=== PATIENT | female | born 1990 | race Caucasian/White ===

== ENCOUNTER → 2018-02-07 | Outpatient (CLI) | payer BC ==
[2018-02-07 20:19] LABS: BASO % 0.1 % (0.0-1.0); EOS # 0.1 10^3/uL (0.0-0.50); EOS % 1.2 % (0.0-3.0); HEMATOCRIT 38.8 % (36.0-47.0); HEMOGLOBIN 12.6 g/dl (12.0-15.5); IMMATURE GRANULOCYTE % 0.3 % (0-3.0); LYMPH # 3.3 10^3/uL (1.5-6.5); MEAN CORPUSCULAR HEMOGLOBIN 26.6 pg (27.0-33.0); MEAN CORPUSCULAR HGB CONC 32.5 g/dl (32.0-36.5); MEAN CORPUSCULAR VOLUME 81.9 fl (80.0-96.0); MONO # 0.9 10^3/uL (0.0-0.8); MONO % 8.6 % (0.0-5.0); NEUTROPHILS % 57.8 % (36.0-66.0); PLATELET COUNT, AUTOMATED 254 10^3/uL (150-450); RED BLOOD COUNT 4.74 10^6/uL (4.00-5.40); RED CELL DISTRIBUTION WIDTH 13.2 % (11.5-14.5); WHITE BLOOD COUNT 10.5 10^3/uL (4.0-10.0)
[2018-02-07 20:40] LABS: ALBUMIN 3.9 GM/DL (3.2-5.2); ALBUMIN/GLOBULIN RATIO 1.03 (1.00-1.93); ALKALINE PHOSPHATASE 118 U/L (45-117); ALT/SGPT 25 U/L (12-78); ANION GAP 6 MEQ/L (8-16); AST/SGOT 16 U/L (7-37); BILIRUBIN,TOTAL 0.2 MG/DL (0.2-1.0); BLOOD UREA NITROGEN 8 MG/DL (7-18); CARBON DIOXIDE LEVEL 29 MEQ/L (21-32); CHLORIDE LEVEL 104 MEQ/L (98-107); CREATININE FOR GFR 0.66 MG/DL (0.55-1.30); FREE T4 0.92 NG/DL (0.76-1.46); GLOMERULAR FILTRATION RATE > 60.0 (>60); GLUCOSE, FASTING 78 MG/DL (70-100); POTASSIUM SERUM 4.2 MEQ/L (3.5-5.1); SODIUM LEVEL 139 MEQ/L (136-145); TOTAL PROTEIN 7.7 GM/DL (6.4-8.2)
== END ==
LOC: M WUC 17:39
DX: R63.5 Abnormal weight gain (principal)
CPT/HCPCS: 84443

== ENCOUNTER → 2018-05-09 | Outpatient (REF) | payer BC | LOC: M LAB REF 12:36 | PROVIDERS: ATTEND Physician Assistant | DX: J02.9 Acute pharyngitis, unspecified (principal) ==

== ENCOUNTER → 2018-09-05 | Outpatient (REF) | payer BC ==
[2018-09-08 14:15] LABS: HPV HYBRID CAPTURE II Negative (Negative)
== END ==
LOC: M LAB REF 13:13
PROVIDERS: ATTEND Family Medicine
DX: Z12.4 Encounter for screening for malignant neoplasm of cervix (principal); Z11.51 Encounter for screening for human papillomavirus (HPV)
CPT/HCPCS: 87624; G0123

== ENCOUNTER → 2018-09-05 | Outpatient (REF) | payer BC ==
[2018-09-05 15:30] LABS: CHLAMYDIA DNA AMPLIFICATION NEGATIVE (NEGATIVE); GC DNA AMPLIFICATION NEGATIVE (NEGATIVE)
== END ==
LOC: M LAB REF 12:56
PROVIDERS: ATTEND Family Medicine
DX: Z01.419 Encounter for gynecological examination (general) (routine) without abnormal findings (principal); Z11.3 Encounter for screening for infections with a predominantly sexual mode of transmission

== ENCOUNTER → 2018-10-13 | Outpatient (CLI) | payer BC ==
--- NOTE | 2018-10-13 14:49 | REP ---
LUMBOSACRAL SPINE: Five views of the lumbosacral spine are performed. There is no compression fracture or malalignment. There is no spondylolysis or spondylolisthesis with normal lumbar lordosis. The disc spaces are well preserved. The posterior elements appear intact. There are hypoplastic 12th ribs noted. IMPRESSION: Essentially negative lumbosacral spine series. Electronically Signed by Gucci Smith MD 10/13/2018 07:41 P
== END ==
LOC: M WUC 13:49
PROVIDERS: ATTEND Physician Assistant
DX: M54.32 Sciatica, left side (principal)

== ENCOUNTER → 2019-08-31 | Outpatient (CLI) | payer BC ==
[2019-08-31 13:35] LABS: BASO % 0.3 % (0.0-1.0); EOS # 0.1 10^3/uL (0.0-0.5); EOS % 0.9 % (0.0-3.0); HEMATOCRIT 40.5 % (36.0-47.0); HEMOGLOBIN 13.4 g/dl (12.0-15.5); LYMPH # 2.6 10^3/uL (1.5-5.0); LYMPH % 33.6 % (24.0-44.0); MEAN CORPUSCULAR HEMOGLOBIN 27.5 pg (27.0-33.0); MEAN CORPUSCULAR HGB CONC 33.1 g/dl (32.0-36.5); MEAN CORPUSCULAR VOLUME 83.2 fl (80.0-96.0); MONO # 0.7 10^3/uL (0.0-0.8); MONO % 8.5 % (0.0-5.0); NEUTROPHILS # 4.3 10^3/uL (1.5-8.5); NEUTROPHILS % 56.6 % (36.0-66.0); PLATELET COUNT, AUTOMATED 259 10^3/uL (150-450); RED BLOOD COUNT 4.87 10^6/uL (4.00-5.40); WHITE BLOOD COUNT 7.7 10^3/uL (4.0-10.0)
[2019-08-31 13:49] LABS: ALBUMIN 3.6 GM/DL (3.2-5.2); ALT/SGPT 21 U/L (12-78); BILIRUBIN,TOTAL 0.3 MG/DL (0.2-1.0); BLOOD UREA NITROGEN 8 MG/DL (7-18); CALCIUM LEVEL 8.7 MG/DL (8.5-10.1); CARBON DIOXIDE LEVEL 23 MEQ/L (21-32); CHLORIDE LEVEL 110 MEQ/L (98-107); CREATININE FOR GFR 0.66 MG/DL (0.55-1.30); FREE T4 0.95 NG/DL (0.76-1.46); GLOMERULAR FILTRATION RATE > 60.0 (>60); GLUCOSE, FASTING 87 MG/DL (70-100); POTASSIUM SERUM 3.9 MEQ/L (3.5-5.1); SODIUM LEVEL 141 MEQ/L (136-145); TOTAL PROTEIN 7.7 GM/DL (6.4-8.2)
[2019-09-02 10:08] LABS: VITAMIN B12 LEVEL 300 PG/ML
[2019-09-02 10:18] LABS: FOLATE 14.3 NG/ML
== END ==
LOC: M WUC 10:36
PROVIDERS: ATTEND Nurse Practitioner Family
DX: R20.0 Anesthesia of skin (principal)

== ENCOUNTER → 2019-12-15 | Outpatient (REF) | payer BC | LOC: M LAB REF 15:03 | PROVIDERS: ATTEND Physician Assistant | DX: R10.9 Unspecified abdominal pain (principal); R31.9 Hematuria, unspecified ==

== ENCOUNTER → 2019-12-20 | Outpatient (CLI) | payer BC ==
--- NOTE | 2020-01-27 07:52 | REP ---
RENAL ULTRASOUND: Delay in reporting results from hospital computer system malfunction from malware, ransomware. REASON FOR EXAM: Right flank pain, hematuria, and proteinuria. COMPARISON: None. FINDINGS: The right kidney measures 10.4 x 5.8 x 4.6 cm. The left kidney measures 10.9 x 5.4 x 5.0 cm. The kidneys are normal size. Renal cortical echogenicity is normal bilaterally. There is no hydronephrosis or calculus on the right or the left. There are no solid cystic masses on the right or the left. IMPRESSION: Essentially negative renal ultrasound. BLADDER: The bladder is incompletely distended. We are unable to identify ureteral jets with color Doppler imaging. IMPRESSION: Suboptimal bladder imaging MTDD
== END ==
LOC: M RAD 06:22
PROVIDERS: ATTEND Physician Assistant
DX: R31.9 Hematuria, unspecified (principal)

== ENCOUNTER → 2020-02-16 | Outpatient (CLI) | payer BC ==
[2020-02-16 17:30] LABS: AMORPHOUS SEDIMENT SMALL (NEGATIVE); APPEARANCE, URINE TURBID (CLEAR); BACTERIA, URINE AUTO 2+ (NEGATIVE); BILIRUBIN, URINE AUTO NEGATIVE (NEGATIVE); BLOOD, URINE BLOOD NEGATIVE (NEGATIVE); COLOR, URINE YELLOW (YELLOW); GLUCOSE, URINE (UA) AUTO 1+ mg/dL (NEGATIVE); KETONE, URINE AUTO TRACE mg/dL (NEGATIVE); LEUKOCYTE ESTERASE, URINE AUTO 1+ (NEGATIVE); MUCUS, URINE LARGE (NEGATIVE); NITRITE, URINE AUTO NEGATIVE (NEGATIVE); PROTEIN, URINE AUTO 1+ mg/dL (NEGATIVE); RBC, URINE AUTO 12 /HPF (0-3); SPECIFIC GRAVITY URINE AUTO 1.027 (1.002-1.035); SQUAMOUS EPITHELIAL CELL UR AU 36 /HPF (0-6); UROBILINOGEN, URINE AUTO 0.2 mg/dL (0.0-2.0); WBC, URINE AUTO 23 /HPF (0-3)
[2020-02-16 17:37] LABS: BASO % 0.1 % (0.0-1.0); EOS # 0.1 10^3/uL (0.0-0.5); EOS % 1.1 % (0.0-3.0); HEMATOCRIT 43.3 % (36.0-47.0); LYMPH # 2.8 10^3/uL (1.5-5.0); LYMPH % 30.4 % (24.0-44.0); MEAN CORPUSCULAR HGB CONC 32.3 g/dl (32.0-36.5); MEAN CORPUSCULAR VOLUME 83.4 fl (80.0-96.0); MONO # 0.8 10^3/uL (0.0-0.8); MONO % 8.4 % (0.0-5.0); NEUTROPHILS # 5.5 10^3/uL (1.5-8.5); NEUTROPHILS % 59.7 % (36.0-66.0); PLATELET COUNT, AUTOMATED 301 10^3/uL (150-450); RED BLOOD COUNT 5.19 10^6/uL (4.00-5.40); WHITE BLOOD COUNT 9.2 10^3/uL (4.0-10.0)
[2020-02-16 17:49] LABS: HCG, SERUM QUALITATIVE NEGATIVE (NEGATIVE)
[2020-02-16 17:57] LABS: ALBUMIN 3.9 GM/DL (3.2-5.2); ALT/SGPT 20 U/L (12-78); BILIRUBIN,TOTAL 0.4 MG/DL (0.2-1.0); BLOOD UREA NITROGEN 9 MG/DL (7-18); CALCIUM LEVEL 8.8 MG/DL (8.5-10.1); CARBON DIOXIDE LEVEL 26 MEQ/L (21-32); CHLORIDE LEVEL 106 MEQ/L (98-107); CREATININE FOR GFR 0.78 MG/DL (0.55-1.30); FREE T4 0.87 NG/DL (0.76-1.46); GLOMERULAR FILTRATION RATE > 60.0 (>60); GLUCOSE, FASTING 88 MG/DL (70-100); LIPASE 83 U/L (73-393); POTASSIUM SERUM 3.6 MEQ/L (3.5-5.1); SODIUM LEVEL 140 MEQ/L (136-145); TOTAL PROTEIN 8.1 GM/DL (6.4-8.2)
== END ==
LOC: M WUC 10:56
PROVIDERS: ATTEND Nurse Practitioner Family
DX: R10.31 Right lower quadrant pain (principal)

== ENCOUNTER → 2020-05-02 | Outpatient (CLI) | payer SELFPAY | LOC: M LABSMTC 09:11 | PROVIDERS: ATTEND Pediatrics | DX: Z20.828 Contact with and (suspected) exposure to other viral communicable diseases (principal) ==

== ENCOUNTER → 2020-05-22 | Outpatient (CLI) | payer BC ==
[2020-05-22 19:54] LABS: FOLATE 9.9 NG/ML
[2020-06-05 11:08] LABS: Lyme Disease IgG/IgM Antibodie <0.91 ISR (0.00-0.90); Lyme Disease IgM Ab Quantitati <0.80 index (0.00-0.79); VITAMIN B1 LEVEL WHOLE BLOOD 103.3 nmol/L (66.5-200.0); VITAMIN B6,PYRIDOXAL PHOSPHATE 4.3 ug/L (2.0-32.8); VITAMIN E(ALPHA TOCOPHEROL) 10.2 mg/L (5.9-19.4); VITAMIN E(GAMMA TOCOPHEROL) 2.3 mg/L (0.7-4.9)
== END ==
LOC: M WUC 15:15
PROVIDERS: ATTEND Nurse Practitioner Family
DX: R20.2 Paresthesia of skin (principal); M12.9 Arthropathy, unspecified

== ENCOUNTER → 2020-05-29 | Outpatient (CLI) | payer SELFPAY | LOC: M LABSMTC 12:02 | PROVIDERS: ATTEND Pediatrics | DX: Z20.822 Contact with and (suspected) exposure to COVID-19 (principal) ==

== ENCOUNTER → 2020-06-29 | Outpatient (CLI) | payer BC ==
--- NOTE | 2020-06-29 08:46 | REP ---
INDICATION: RIGHT UPPER QUADRANT PAIN COMPARISON: None. TECHNIQUE: Real time josue scale ultrasound examination using curved array transducer. FINDINGS: Liver is normal in contour, size, and echogenicity without focal hepatic lesions identified. Pancreas is incompletely evaluated due to interposed bowel gas. The gallbladder is normal and without gallstones, wall thickening, or pericholecystic fluid. No biliary ductal dilatation is appreciated and the common bile duct measures 4.9 mm diameter. Right kidney is normal in reniform shape without hydronephrosis and measures 10.5 x 5.2 x 4.8 cm. Visualized abdominal aorta appears normal. No ascites in the visualized right upper quadrant. IMPRESSION: Normal limited right upper quadrant ultrasound <Electronically signed by Angel Mcneil > 06/29/20 [id number]
== END ==
LOC: M RAD 06:25
PROVIDERS: ATTEND Physician Assistant Medical
DX: R10.11 Right upper quadrant pain (principal)

== ENCOUNTER → 2020-07-03 | Outpatient (CLI) | payer BC ==
[2020-07-03 19:41] LABS: HEMATOCRIT 39.1 % (36.0-47.0); HEMOGLOBIN 12.5 g/dl (12.0-15.5); MEAN CORPUSCULAR HEMOGLOBIN 26.7 pg (27.0-33.0); MEAN CORPUSCULAR VOLUME 83.4 fl (80.0-96.0); PLATELET COUNT, AUTOMATED 272 10^3/uL (150-450); RED BLOOD COUNT 4.69 10^6/uL (4.00-5.40); WHITE BLOOD COUNT 8.2 10^3/uL (4.0-10.0)
[2020-07-03 20:51] LABS: ALBUMIN 3.9 GM/DL (3.2-5.2); ALT/SGPT 20 U/L (12-78); AMYLASE 35 U/L (25-115); BILIRUBIN,DIRECT < 0.1 MG/DL (0.0-0.2); BILIRUBIN,TOTAL 0.2 MG/DL (0.2-1.0); BLOOD UREA NITROGEN 7 MG/DL (7-18); CALCIUM LEVEL 8.6 MG/DL (8.5-10.1); CARBON DIOXIDE LEVEL 26 MEQ/L (21-32); CHLORIDE LEVEL 107 MEQ/L (98-107); CREATININE FOR GFR 0.86 MG/DL (0.55-1.30); GLOMERULAR FILTRATION RATE > 60.0 (>60); GLUCOSE, FASTING 84 MG/DL (70-100); LIPASE 96 U/L (73-393); POTASSIUM SERUM 3.2 MEQ/L (3.5-5.1); SODIUM LEVEL 140 MEQ/L (136-145); TOTAL PROTEIN 7.9 GM/DL (6.4-8.2)
[2020-07-03 20:52] LABS: LABILE ALKPHOS 53 U/L; STABLE ALKPHOS 70 U/L
[2020-07-03 20:53] LABS: % LABILE ALKALINE PHOSPHATASE 43 %
== END ==
LOC: M WUC 15:23
PROVIDERS: ATTEND Physician Assistant Medical
DX: R10.11 Right upper quadrant pain (principal)

== ENCOUNTER → 2020-08-10 | Outpatient (CLI) | payer BC ==
[~2020-08-10] MED LIST: E-Z-GAS II EFFERVESCENT PACKET (SODIUM BICARB./CITRIC ACID/SIMETHICONE) As Ordered ONE; E-Z-HD 98% w/w 340GM SUSP BTL As Ordered ONE; E-Z-PAQUE 96% w/w SUSP 176GM BTL As Ordered ONE
--- NOTE | 2020-08-10 10:21 | REP ---
INDICATION: RUQ PAIN. COMPARISON: None TECHNIQUE/RADIOTRACER AND DOSE: FOLLOWING THE INTRAVENOUS ADMINISTRATION OF 6.6 MCI TECHNETIUM 99 M-MEBROFENIN, MULTIPLE IMAGES OF THE RIGHT UPPER QUADRANT ARE PERFORMED FOR 60 MINUTES. NEXT 8 OZ OF ENSURE ENLIVE IS INGESTED AND FURTHER IMAGING IS PERFORMED FOR 65 MINUTES. FINDINGS: THE GALLBLADDER IS VISUALIZED AT 15 MINUTES POST INJECTION. THERE IS BILIARY TO BOWEL TRANSIT AT 15MINUTES POST INJECTION. THERE IS NO SCINTIGRAPHIC EVIDENCE OF CHOLECYSTITIS. GALLBLADDER EJECTION FRACTION IS CALCULATED TO BE 10% WHICH IS low. IMPRESSION: Gallbladder ejection fraction is 10%, normal is greater than 35%. <Electronically signed by Gucci Smith > 08/10/20 [id number]
== END ==
LOC: M RAD 07:42
PROVIDERS: ATTEND Physician Assistant Medical
DX: R10.11 Right upper quadrant pain (principal)
CPT/HCPCS: 78227; A9537

== ENCOUNTER 2020-11-09 15:24 | Outpatient (CLI) | payer BC ==
[~2020-11-09] VITALS: Ht 152.4 cm; Wt 86.0 kg
[2020-11-09 15:35] VITALS: BP 135/76
[2020-11-09] MEDS ORDERED: methylPREDNISolone 1,000 MG, VIAL MATE ADAPTER 1 EACH in NS 250 ML IV ONE (15:40)
[2020-11-09] MEDS ORDERED: SERT-141 PO (16:05)
[2020-11-09] MEDS ORDERED: BACT800T5 PO (16:06)
[2020-11-09 17:00] VITALS: BP 129/76
[2020-11-09 17:16] VITALS: BP 143/77
== END 2020-11-09 17:20 | disposition home or self-care (01) ==
LOC: M INFU 15:24
PROVIDERS: ATTEND Psychiatry & Neurology Neurology
DX: G35 Multiple sclerosis (principal)
CPT/HCPCS: 96365; J2930

== ENCOUNTER 2020-11-10 15:50 | Outpatient (CLI) | payer BC ==
[~2020-11-10] VITALS: Ht 152.4 cm; Wt 86.0 kg
[~2020-11-10 15:50] MED LIST changes: +BACT800T5 PO; -E-Z-GAS II EFFERVESCENT PACKET (SODIUM BICARB./CITRIC ACID/SIMETHICONE) As Ordered ONE; -E-Z-HD 98% w/w 340GM SUSP BTL As Ordered ONE; -E-Z-PAQUE 96% w/w SUSP 176GM BTL As Ordered ONE; +SERT-141 PO
[2020-11-10] MEDS ORDERED: methylPREDNISolone 1,000 MG, VIAL MATE ADAPTER 1 EACH in NS 250 ML IV ONE (16:00)
[2020-11-10 16:48] VITALS: BP 118/73
[2020-11-10 17:12] VITALS: BP 120/69
== END 2020-11-10 17:20 | disposition home or self-care (01) ==
LOC: M INFU 15:50
PROVIDERS: ATTEND Psychiatry & Neurology Neurology
DX: G35 Multiple sclerosis (principal)
CPT/HCPCS: 96365; J2930

== ENCOUNTER 2020-11-11 16:25 | Outpatient (CLI) | payer BC ==
[~2020-11-11] VITALS: Ht 152.4 cm; Wt 86.0 kg
[~2020-11-11 16:25] MED LIST changes: +methylPREDNISolone 1,000 MG, VIAL MATE ADAPTER 1 EACH in NS 250 ML IV ONE
[2020-11-11 16:30] VITALS: BP 139/72
[2020-11-11 17:51] VITALS: BP 133/74
== END 2020-11-11 17:50 | disposition home or self-care (01) ==
LOC: M INFU 16:25
PROVIDERS: ATTEND Psychiatry & Neurology Neurology
DX: G35 Multiple sclerosis (principal)
CPT/HCPCS: 96365; J2930

== ENCOUNTER 2020-11-12 15:45 | Outpatient (CLI) | payer BC ==
[~2020-11-12] VITALS: Ht 152.4 cm; Wt 86.0 kg
[~2020-11-12 15:45] MED LIST changes: -methylPREDNISolone 1,000 MG, VIAL MATE ADAPTER 1 EACH in NS 250 ML IV ONE
[2020-11-12 16:00] VITALS: BP 129/67
[2020-11-12] MEDS ORDERED: methylPREDNISolone 1,000 MG, VIAL MATE ADAPTER 1 EACH in NS 250 ML IV ONE (16:00)
[2020-11-12 17:15] VITALS: BP 128/70
== END 2020-11-12 17:15 | disposition home or self-care (01) ==
LOC: M INFU 15:45
PROVIDERS: ATTEND Psychiatry & Neurology Neurology
DX: G35 Multiple sclerosis (principal)
CPT/HCPCS: 96365; J2930

== ENCOUNTER 2020-11-13 15:51 | Outpatient (CLI) | payer BC ==
[~2020-11-13] VITALS: Ht 152.4 cm; Wt 86.0 kg
[2020-11-13] MEDS ORDERED: methylPREDNISolone 1,000 MG, VIAL MATE ADAPTER 1 EACH in NS 250 ML IV ONE (16:00)
[2020-11-13 16:01] VITALS: BP 144/91
[2020-11-13 17:20] VITALS: BP 135/83
== END 2020-11-13 17:20 | disposition home or self-care (01) ==
LOC: M INFU 15:51
PROVIDERS: ATTEND Psychiatry & Neurology Neurology
DX: G35 Multiple sclerosis (principal)
CPT/HCPCS: 96365; J2930

== ENCOUNTER → 2020-12-03 | Outpatient (CLI) | payer BC ==
[2020-12-03 11:35] LABS: BASO % 0.1 % (0.0-1.0); EOS # 0.2 10^3/uL (0.0-0.5); EOS % 2.7 % (0.0-3.0); HEMATOCRIT 37.9 % (36.0-47.0); HEMOGLOBIN 12.5 g/dl (12.0-15.5); LYMPH # 1.9 10^3/uL (1.5-5.0); LYMPH % 27.5 % (24.0-44.0); MEAN CORPUSCULAR VOLUME 81.9 fl (80.0-96.0); MONO # 0.5 10^3/uL (0.0-0.8); MONO % 6.5 % (2.0-8.0); NEUTROPHILS # 4.4 10^3/uL (1.5-8.5); NEUTROPHILS % 62.6 % (36.0-66.0); PLATELET COUNT, AUTOMATED 257 10^3/uL (150-450); RED BLOOD COUNT 4.63 10^6/uL (4.00-5.40)
[2020-12-03 11:44] LABS: INR 0.9; PROTHROMBIN TIME 12.6 SECONDS (12.7-14.5)
[2020-12-03 11:45] LABS: PARTIAL THROMBOPLASTIN TIME 30.9 SECONDS (25.9-37.0)
[2020-12-03 12:23] LABS: ALBUMIN 3.5 GM/DL (3.2-5.2); ALT/SGPT 28 U/L (12-78); BILIRUBIN,TOTAL 0.3 MG/DL (0.2-1.0); BLOOD UREA NITROGEN 6 MG/DL (7-18); CARBON DIOXIDE LEVEL 27 MEQ/L (21-32); CHLORIDE LEVEL 108 MEQ/L (98-107); CREATININE FOR GFR 0.62 MG/DL (0.55-1.30); GLOMERULAR FILTRATION RATE > 60.0 (>60); GLUCOSE, FASTING 87 MG/DL (70-100); HEPATITIS B SURFACE ANTIBODY POSITIVE (POSITIVE); POTASSIUM SERUM 3.3 MEQ/L (3.5-5.1); SODIUM LEVEL 142 MEQ/L (136-145); TOTAL 25(OH) VITAMIN D 18.8 NG/ML (30.0-100.0); TOTAL PROTEIN 6.9 GM/DL (6.4-8.2)
[2020-12-03 12:48] LABS: HEPATITIS C VIRUS ABY INDEX 0.1 INDEX (<0.8)
[2020-12-03 12:50] LABS: HEPATITIS A ANTIBODY IGM NEGATIVE (NEGATIVE)
[2020-12-04 12:12] LABS: IgG P18 AB Absent (.); IgG P23 AB Absent (.); IgG P28 AB Absent (.); IgG P30 AB Absent (.); IgG P39 AB Absent (.); IgG P41 AB Absent (.); IgG P45 AB Absent (.); IgG P66 AB Absent (.); IgG P93 AB Absent (.); IgM P23 AB Absent (.); IgM P39 AB Absent (.); IgM P41 AB Absent (.); LYME IgG WB INTERPRETATION Negative (.); LYME IgM WB INTERPRETATION Negative (.)
== END ==
LOC: M WUC 09:10
PROVIDERS: ATTEND Psychiatry & Neurology Neurology
DX: G35 Multiple sclerosis (principal)

== ENCOUNTER → 2020-12-08 | Outpatient (CLI) | payer BC ==
[~2020-12-08] MED LIST changes: +SODIUM BICARBONATE 8.4% INJ 50MEQ 50 ML VIAL As Ordered ONE
[2020-12-08 10:45] LABS: APPEARANCE, CSF CLEAR (CLEAR); COLOR, CSF COLORLESS (COLORLESS); CSF TUBE# CELL CNT TUBE 1
[2020-12-08 10:49] LABS: CSF TUBE# GLU TUBE 1; CSF TUBE# TP TUBE 1; GLUCOSE CSF 54 MG/DL (40-75); TOTAL PROTEIN,CSF 37 MG/DL (15-45)
[2020-12-08 11:33] VITALS: BP 106/56
--- NOTE | 2020-12-08 17:06 | REP ---
PROCEDURE NAME: FLUORO GUID FOR NEEDLE PLACEMT SEDATION: None CLINICAL INFORMATION: ? MS- LUMBAR PUNCTURE. PHYSICIAN: Hilda Cabrera PROCEDURE DESCRIPTION: The procedure was performed by LUIGI Duncan, under the direct supervision of Dr. Hale. The risks and benefits of the procedure were explained to the patient and an informed consent was obtained both verbally and written. Directly prior to the start of the procedure a formal time-out was completed in the procedure room. The L3-4 interspace was localized using fluoroscopic guidance. The skin was prepped and draped in a sterile fashion. Five mL 1 % lidocaine 10 milligrams/milliliter was used as a local anesthetic. Using fluoroscopic guidance a 22 gauge spinal needle was inserted and advanced without significant difficulty in to the cerebral spinal space at the L3-4 interspinous level. Clear freely flowing cerebral spinal fluid was retrieved. The initial opening pressure was measured by manometry at 21 cm of water. A total of 13 mL of cerebral spinal fluid was withdrawn gently and submitted to the lab for routine analysis. The patient tolerated the procedure well and there were no immediate complications. After the appropriate amount of monitored convalescence the patient was discharged back to the unit. ESTIMATED BLOOD LOSS: Less than 1 mL COMPLICATIONS: None CONCLUSION: Lumbar puncture and CSF retrieval under fluoroscopic guidance. 0.3 minutes of fluoroscopy time was utilized for this procedure. Some fluoroscopic images are performed with last image hold technology. These images require no additional radiation. <Electronically signed by Hilda Cabrera > 12/08/20 1532 <Electronically signed by Liam Hale > 12/08/20 [id number]
== END ==
LOC: M IRPRO 08:49
PROVIDERS: ATTEND Psychiatry & Neurology Neurology
DX: G37.9 Demyelinating disease of central nervous system, unspecified (principal)

== ENCOUNTER → 2021-05-12 | Outpatient (CLI) | payer BC ==
[~2021-05-12] MED LIST changes: -SODIUM BICARBONATE 8.4% INJ 50MEQ 50 ML VIAL As Ordered ONE
== END ==
LOC: M RAD 10:09
PROVIDERS: ATTEND Physician Assistant Medical
DX: N83.202 Unspecified ovarian cyst, left side (principal)

== ENCOUNTER → 2021-06-11 | Outpatient (CLI) | payer BC ==
[2021-06-11 18:57] LABS: HEMATOCRIT 39.7 % (36.0-47.0); HEMOGLOBIN 12.5 g/dl (12.0-15.5); MEAN CORPUSCULAR HEMOGLOBIN 26.6 pg (27.0-33.0); MEAN CORPUSCULAR HGB CONC 31.5 g/dl (32.0-36.5); MEAN CORPUSCULAR VOLUME 84.5 fl (80.0-96.0); PLATELET COUNT, AUTOMATED 250 10^3/uL (150-450); WHITE BLOOD COUNT 8.7 10^3/uL (4.0-10.0)
[2021-06-11 19:16] LABS: ALBUMIN 3.7 GM/DL (3.2-5.2); ALT/SGPT 36 U/L (12-78); BILIRUBIN,DIRECT 0.1 MG/DL (0.0-0.2); BILIRUBIN,TOTAL 0.1 MG/DL (0.2-1.0); BLOOD UREA NITROGEN 8 MG/DL (7-18); CALCIUM LEVEL 8.7 MG/DL (8.5-10.1); CARBON DIOXIDE LEVEL 26 MEQ/L (21-32); CHLORIDE LEVEL 105 MEQ/L (98-107); CHOLESTEROL LEVEL 180 MG/DL (<200); GLOMERULAR FILTRATION RATE > 60.0 (>60); GLUCOSE, FASTING 79 MG/DL (70-100); HDL CHOLESTEROL 48 MG/DL (>40); LDL CHOLESTEROL 108 MG/DL (<100); NON-HDL-C 132 MG/DL; POTASSIUM SERUM 3.6 MEQ/L (3.5-5.1); SODIUM LEVEL 139 MEQ/L (136-145); TOTAL PROTEIN 7.3 GM/DL (6.4-8.2); TRIGLYCERIDES LEVEL 118 MG/DL (<150)
== END ==
LOC: M WUC 15:18
PROVIDERS: ATTEND Nurse Practitioner Family
DX: R10.11 Right upper quadrant pain (principal); Z13.0 Encounter for screening for diseases of the blood and blood-forming organs and certain disorders involving the immune mechanism; Z13.220 Encounter for screening for lipoid disorders

== ENCOUNTER → 2021-07-09 | Outpatient (CLI) | payer BC | LOC: M RAD 07-07 09:56 | PROVIDERS: ATTEND Physician Assistant Medical | DX: N83.209 Unspecified ovarian cyst, unspecified side (principal) ==

== ENCOUNTER → 2021-08-25 | Outpatient (CLI) | payer BC ==
[2021-08-25 19:24] LABS: BASO % 0.2 % (0.0-1.0); EOS # 0.3 10^3/uL (0.0-0.5); EOS % 2.7 % (0.0-3.0); HEMOGLOBIN 13.1 g/dl (12.0-15.5); LYMPH # 2.7 10^3/uL (1.5-5.0); LYMPH % 25.2 % (24.0-44.0); MEAN CORPUSCULAR HEMOGLOBIN 27.2 pg (27.0-33.0); MEAN CORPUSCULAR HGB CONC 32.8 g/dl (32.0-36.5); MEAN CORPUSCULAR VOLUME 83.2 fl (80.0-96.0); MONO # 1.1 10^3/uL (0.0-0.8); MONO % 10.2 % (2.0-8.0); NEUTROPHILS # 6.6 10^3/uL (1.5-8.5); NEUTROPHILS % 61.4 % (36.0-66.0); PLATELET COUNT, AUTOMATED 276 10^3/uL (150-450); RED BLOOD COUNT 4.81 10^6/uL (4.00-5.40); WHITE BLOOD COUNT 10.8 10^3/uL (4.0-10.0)
[2021-08-25 19:35] LABS: APPEARANCE, URINE CLEAR (CLEAR); BACTERIA, URINE AUTO 1+ (NEGATIVE); BILIRUBIN, URINE AUTO NEGATIVE (NEGATIVE); BLOOD, URINE BLOOD NEGATIVE (NEGATIVE); COLOR, URINE STRAW (YELLOW); GLUCOSE, URINE (UA) AUTO NEGATIVE (NEGATIVE); KETONE, URINE AUTO NEGATIVE (NEGATIVE); LEUKOCYTE ESTERASE, URINE AUTO 2+ (NEGATIVE); NITRITE, URINE AUTO NEGATIVE (NEGATIVE); PROTEIN, URINE AUTO NEGATIVE (NEGATIVE); RBC, URINE AUTO 0 /HPF (0-3); SPECIFIC GRAVITY URINE AUTO 1.006 (1.002-1.035); SQUAMOUS EPITHELIAL CELL UR AU 3 /HPF (0-6); UROBILINOGEN, URINE AUTO 0.2 mg/dL (0.0-2.0); WBC, URINE AUTO 3 /HPF (0-3)
[2021-08-25 19:51] LABS: HCG, SERUM QUALITATIVE NEGATIVE (NEGATIVE)
[2021-08-25 20:00] LABS: ALBUMIN 3.9 GM/DL (3.2-5.2); ALT/SGPT 27 U/L (12-78); BILIRUBIN,TOTAL 0.2 MG/DL (0.2-1.0); BLOOD UREA NITROGEN 7 MG/DL (7-18); CALCIUM LEVEL 9.5 MG/DL (8.5-10.1); CARBON DIOXIDE LEVEL 29 MEQ/L (21-32); CHLORIDE LEVEL 105 MEQ/L (98-107); CREATININE FOR GFR 0.68 MG/DL (0.55-1.30); FREE T4 0.87 NG/DL (0.76-1.46); GLOMERULAR FILTRATION RATE > 60.0 (>60); GLUCOSE, FASTING 80 MG/DL (70-100); LIPASE 105 U/L (73-393); POTASSIUM SERUM 3.8 MEQ/L (3.5-5.1); SODIUM LEVEL 140 MEQ/L (136-145); TOTAL PROTEIN 7.4 GM/DL (6.4-8.2)
[2021-08-27 16:08] LABS: H PYLORI SERUM QUANT IGA <9.0 units (0.0-8.9); H PYLORI SERUM QUANT IGM <9.0 units (0.0-8.9)
== END ==
LOC: M WUC 15:15
PROVIDERS: ATTEND Nurse Practitioner Family
DX: R10.84 Generalized abdominal pain (principal)

== ENCOUNTER → 2021-08-25 | Outpatient (CLI) | payer BC ==
[2021-08-25 19:23] LABS: BASO % 0.2 % (0.0-1.0); EOS # 0.3 10^3/uL (0.0-0.5); EOS % 2.5 % (0.0-3.0); HEMATOCRIT 39.4 % (36.0-47.0); HEMOGLOBIN 12.9 g/dl (12.0-15.5); LYMPH # 2.7 10^3/uL (1.5-5.0); LYMPH % 24.3 % (24.0-44.0); MEAN CORPUSCULAR HEMOGLOBIN 26.9 pg (27.0-33.0); MEAN CORPUSCULAR HGB CONC 32.7 g/dl (32.0-36.5); MEAN CORPUSCULAR VOLUME 82.3 fl (80.0-96.0); MONO # 1.1 10^3/uL (0.0-0.8); MONO % 10.3 % (2.0-8.0); NEUTROPHILS # 6.9 10^3/uL (1.5-8.5); NEUTROPHILS % 62.3 % (36.0-66.0); PLATELET COUNT, AUTOMATED 272 10^3/uL (150-450); RED BLOOD COUNT 4.79 10^6/uL (4.00-5.40)
[2021-08-25 19:35] LABS: APPEARANCE, URINE CLEAR (CLEAR); BACTERIA, URINE AUTO 1+ (NEGATIVE); BILIRUBIN, URINE AUTO NEGATIVE (NEGATIVE); BLOOD, URINE BLOOD NEGATIVE (NEGATIVE); COLOR, URINE STRAW (YELLOW); GLUCOSE, URINE (UA) AUTO NEGATIVE (NEGATIVE); KETONE, URINE AUTO NEGATIVE (NEGATIVE); LEUKOCYTE ESTERASE, URINE AUTO 1+ (NEGATIVE); MUCUS, URINE SMALL (NEGATIVE); NITRITE, URINE AUTO NEGATIVE (NEGATIVE); PROTEIN, URINE AUTO NEGATIVE (NEGATIVE); RBC, URINE AUTO 0 /HPF (0-3); SPECIFIC GRAVITY URINE AUTO 1.006 (1.002-1.035); SQUAMOUS EPITHELIAL CELL UR AU 3 /HPF (0-6); UROBILINOGEN, URINE AUTO 0.2 mg/dL (0.0-2.0); WBC, URINE AUTO 1 /HPF (0-3)
[2021-08-25 19:54] LABS: ALBUMIN 3.9 GM/DL (3.2-5.2); ALT/SGPT 27 U/L (12-78); BILIRUBIN,TOTAL 0.3 MG/DL (0.2-1.0); BLOOD UREA NITROGEN 8 MG/DL (7-18); CALCIUM LEVEL 9.6 MG/DL (8.5-10.1); CARBON DIOXIDE LEVEL 29 MEQ/L (21-32); CHLORIDE LEVEL 106 MEQ/L (98-107); CREATININE FOR GFR 0.68 MG/DL (0.55-1.30); GLOMERULAR FILTRATION RATE > 60.0 (>60); GLUCOSE, FASTING 76 MG/DL (70-100); POTASSIUM SERUM 3.6 MEQ/L (3.5-5.1); SODIUM LEVEL 140 MEQ/L (136-145); TOTAL PROTEIN 7.4 GM/DL (6.4-8.2)
[2021-08-25 20:00] LABS: TOTAL 25(OH) VITAMIN D 16.2 NG/ML (30.0-100.0)
== END ==
LOC: M WUC 15:17
PROVIDERS: ATTEND Psychiatry & Neurology Neurology
DX: G35 Multiple sclerosis (principal)

== ENCOUNTER → 2021-09-23 | Outpatient (CLI) | payer BC ==
[2021-09-23 18:11] LABS: BASO % 0.1 % (0.0-1.0); EOS # 0.2 10^3/uL (0.0-0.5); EOS % 2.6 % (0.0-3.0); HEMATOCRIT 40.6 % (36.0-47.0); LYMPH # 2.3 10^3/uL (1.5-5.0); LYMPH % 26.8 % (24.0-44.0); MEAN CORPUSCULAR VOLUME 84.2 fl (80.0-96.0); MONO # 0.7 10^3/uL (0.0-0.8); MONO % 8.3 % (2.0-8.0); NEUTROPHILS # 5.3 10^3/uL (1.5-8.5); NEUTROPHILS % 61.8 % (36.0-66.0); PLATELET COUNT, AUTOMATED 257 10^3/uL (150-450); RED BLOOD COUNT 4.82 10^6/uL (4.00-5.40); WHITE BLOOD COUNT 8.6 10^3/uL (4.0-10.0)
[2021-09-23 18:29] LABS: APPEARANCE, URINE HAZY (CLEAR); BACTERIA, URINE AUTO 1+ (NEGATIVE); BILIRUBIN, URINE AUTO NEGATIVE (NEGATIVE); BLOOD, URINE BLOOD NEGATIVE (NEGATIVE); COLOR, URINE YELLOW (YELLOW); GLUCOSE, URINE (UA) AUTO NEGATIVE (NEGATIVE); KETONE, URINE AUTO NEGATIVE (NEGATIVE); LEUKOCYTE ESTERASE, URINE AUTO 1+ (NEGATIVE); MUCUS, URINE SMALL (NEGATIVE); NITRITE, URINE AUTO NEGATIVE (NEGATIVE); PROTEIN, URINE AUTO NEGATIVE (NEGATIVE); RBC, URINE AUTO 1 /HPF (0-3); SPECIFIC GRAVITY URINE AUTO 1.021 (1.002-1.035); SQUAMOUS EPITHELIAL CELL UR AU 8 /HPF (0-6); UROBILINOGEN, URINE AUTO 0.2 mg/dL (0.0-2.0); WBC, URINE AUTO 2 /HPF (0-3)
[2021-09-23 18:37] LABS: ALBUMIN 3.8 GM/DL (3.2-5.2); ALT/SGPT 30 U/L (12-78); BILIRUBIN,TOTAL 0.3 MG/DL (0.2-1.0); BLOOD UREA NITROGEN 9 MG/DL (7-18); CALCIUM LEVEL 8.9 MG/DL (8.5-10.1); CARBON DIOXIDE LEVEL 29 MEQ/L (21-32); CHLORIDE LEVEL 105 MEQ/L (98-107); CREATININE FOR GFR 0.76 MG/DL (0.55-1.30); GLOMERULAR FILTRATION RATE > 60.0 (>60); GLUCOSE, FASTING 84 MG/DL (70-100); POTASSIUM SERUM 3.9 MEQ/L (3.5-5.1); SODIUM LEVEL 138 MEQ/L (136-145); TOTAL PROTEIN 7.7 GM/DL (6.4-8.2)
== END ==
LOC: M LAB 15:52
DX: K52.9 Noninfective gastroenteritis and colitis, unspecified (principal)

== ENCOUNTER → 2022-01-21 | Outpatient (CLI) | payer BC ==
[2022-01-21 13:30] LABS: HEMATOCRIT 41.7 % (36.0-47.0); HEMOGLOBIN 13.2 g/dl (12.0-15.5); MEAN CORPUSCULAR HEMOGLOBIN 26.8 pg (27.0-33.0); MEAN CORPUSCULAR HGB CONC 31.7 g/dl (32.0-36.5); MEAN CORPUSCULAR VOLUME 84.8 fl (80.0-96.0); PLATELET COUNT, AUTOMATED 298 10^3/uL (150-450); RED BLOOD COUNT 4.92 10^6/uL (4.00-5.40); WHITE BLOOD COUNT 11.5 10^3/uL (4.0-10.0)
[2022-01-21 14:53] LABS: HEPATITIS C VIRUS ABY INDEX < 0.0 INDEX (<0.8); HIV 1&2 SCREEN CENTAUR NEGATIVE (NEGATIVE)
[2022-01-21 15:04] LABS: GC DNA AMPLIFICATION NEGATIVE (NEGATIVE)
== END ==
LOC: M PLALAB 10:49
PROVIDERS: ATTEND Advanced Practice Midwife
DX: O99.351 Diseases of the nervous system complicating pregnancy, first trimester (principal); Z3A.00 Weeks of gestation of pregnancy not specified

== ENCOUNTER → 2022-03-23 | Outpatient (REF) | payer BC, MEDICAID ==
[2022-03-23 19:12] LABS: GC DNA AMPLIFICATION NEGATIVE (NEGATIVE)
== END ==
LOC: M LAB REF 16:40
PROVIDERS: ATTEND Family Medicine
DX: N76.2 Acute vulvitis (principal)

== ENCOUNTER → 2022-04-01 | Outpatient (CLI) | payer BC, MEDICAID | LOC: M WHC 09:54 | PROVIDERS: ATTEND Obstetrics & Gynecology | DX: Z34.92 Encounter for supervision of normal pregnancy, unspecified, second trimester (principal) ==

== ENCOUNTER 2022-04-22 13:55 | Outpatient (CLI) | payer BC, MEDICAID ==
[~2022-04-22] VITALS: Ht 152.4 cm; Wt 98.0 kg
[2022-04-22] MEDS ORDERED: HOME MED LIST COMPLETE! XX SCH (14:15)
[2022-04-22] MEDS ORDERED: PRENTAB9 PO (14:15)
[2022-04-22 14:17] VITALS: BP 127/64
== END 2022-04-22 16:36 | disposition home or self-care (01) ==
LOC: M LDO 13:55
PROVIDERS: ATTEND Advanced Practice Midwife
DX: O26.892 Other specified pregnancy related conditions, second trimester (principal); M54.50 Low back pain, unspecified; Y92.9 Unspecified place or not applicable; Y93.9 Activity, unspecified; Y99.9 Unspecified external cause status; Z3A.23 23 weeks gestation of pregnancy
CPT/HCPCS: 59025; G0378; G0463

== ENCOUNTER → 2022-05-20 | Outpatient (CLI) | payer BC, MEDICAID ==
[~2022-05-20] MED LIST changes: +PRENTAB9 PO
[2022-05-20 16:26] LABS: HEMATOCRIT 32.6 % (36.0-47.0); HEMOGLOBIN 10.5 g/dl (12.0-15.5); MEAN CORPUSCULAR HEMOGLOBIN 26.9 pg (27.0-33.0); MEAN CORPUSCULAR HGB CONC 32.2 g/dl (32.0-36.5); MEAN CORPUSCULAR VOLUME 83.6 fl (80.0-96.0); PLATELET COUNT, AUTOMATED 267 10^3/uL (150-450); WHITE BLOOD COUNT 12.3 10^3/uL (4.0-10.0)
== END ==
LOC: M PLALAB 12:15
PROVIDERS: ATTEND Advanced Practice Midwife
DX: Z34.02 Encounter for supervision of normal first pregnancy, second trimester (principal)

== ENCOUNTER → 2022-06-03 | Outpatient (CLI) | payer BC | LOC: M LAB 07:48 | PROVIDERS: ATTEND Advanced Practice Midwife | DX: O99.810 Abnormal glucose complicating pregnancy (principal) ==

== ENCOUNTER → 2022-07-28 | Outpatient (REF) | payer BC, MEDICAID | LOC: M PLALAB 08:55 | PROVIDERS: ATTEND Advanced Practice Midwife | DX: Z34.80 Encounter for supervision of other normal pregnancy, unspecified trimester (principal) ==

== ENCOUNTER 2022-08-12 08:37 | Inpatient (IN) | payer BC, MEDICAID ==
[2022-08-12] VITALS (41 sets, daily range): BP systolic 110–176; BP diastolic 55–90
[~2022-08-12] VITALS: Ht 152.4 cm; Wt 102.1 kg
[2022-08-12] MEDS ORDERED: OMEP10CASR PO (08:57)
[2022-08-12] MEDS ORDERED: HOME MED LIST COMPLETE! XX SCH (09:00)
[2022-08-12] MEDS ORDERED: LACTATED RINGER'S 1000 ML IV STA (09:43)
[2022-08-12] MEDS ORDERED: PENICILLIN G POTASSIUM 5 MU IV 5 MU in D5W MINI-BAG PLUS 100 ML IV STA (09:43)
[2022-08-12] MEDS ORDERED: CARBOPROST TROMETHAMINE 250 MCG/ML AMP IM PRN (09:45)
[2022-08-12] MEDS ORDERED: OXYTOCIN DRIP 30 UNITS in IV 1 EA IV PRN (09:45)
[2022-08-12] MEDS ORDERED: METHYLERGONOVINE MALEATE 0.2MG/ML 1ML VIAL IM PRN (09:45)
[2022-08-12] MEDS ORDERED: TRANEXAMIC ACID INJection 1,000 MG in NS 100 ML IV PRN (09:45)
[2022-08-12] MEDS ORDERED: LIDOCAINE 1% MDV 20ML VIAL INFIL PRN (09:45)
[2022-08-12 10:27] LABS: HEMATOCRIT 41.4 % (36.0-47.0); HEMOGLOBIN 13.1 g/dl (12.0-15.5); MEAN CORPUSCULAR HEMOGLOBIN 25.1 pg (27.0-33.0); MEAN CORPUSCULAR HGB CONC 31.6 g/dl (32.0-36.5); MEAN CORPUSCULAR VOLUME 79.3 fl (80.0-96.0); PLATELET COUNT, AUTOMATED 199 10^3/uL (150-450); RED BLOOD COUNT 5.22 10^6/uL (4.00-5.40); WHITE BLOOD COUNT 11.9 10^3/uL (4.0-10.0)
[2022-08-12] MEDS ORDERED: NALOXONE INJ 0.4MG/1ML VIAL IV PRN ×3 (10:50→22:35)
[2022-08-12] MEDS ORDERED: EPIDURAL/PCA KEYS XX PRN (10:50)
[2022-08-12] MEDS ORDERED: ONDANSETRON 4MG 2ML VIAL IV PRN ×3 (10:50→22:35)
[2022-08-12] MEDS ORDERED: diphenhydrAMINE 50MG/ML VIAL IV PRN ×2 (10:50→22:35)
[2022-08-12] MEDS ORDERED: ePHEDrine SULFATE 25 MG/5 ML(5MG/ML) SYRINGE IVP PRN (10:50)
[2022-08-12] MEDS ORDERED: LR 500 ML IV PRN (10:50)
[2022-08-12] MEDS: LR 1,000 ML IV SCH ×3 (11:15→22:20)
[2022-08-12] MEDS: FENTANYL/ROPIVACAINE/NACL BAG 100 ML EPIDURAL SCH ×2 (11:34→21:29)
[2022-08-12] MEDS: PEN G POT 3,000,000 UNIT/50 ML 3,000,000 UNIT in IV 1 EA IV SCH ×2 (14:19→18:30)
[2022-08-12] MEDS ORDERED: OXYTOCIN DRIP 30 UNITS in IV 1 EA IV SCH ×2 (16:00→22:20)
[2022-08-12] MEDS ORDERED: BICITRA 30ML SOLN UDC PO ONE (21:45)
[2022-08-12] MEDS ORDERED: ceFAZolin SOD 2 GM in IV 1 EA IV ONE (21:45)
[2022-08-12] MEDS ORDERED: AZITHROMYCIN INJ 500 MG, VIAL MATE ADAPTER 1 EACH in NS 250 ML IV ONE (21:45)
[2022-08-12] MEDS ORDERED: KETOROLAC 60MG 2ML VIAL As Ordered ONE (22:17)
[2022-08-12] MEDS ORDERED: LIDOCAINE 2% W/EPINEPHRINE 20ML VIAL **PRES FREE As Ordered ONE (22:17)
[2022-08-12] MEDS ORDERED: ACETAMINOPHEN 1000MG 100ML IV BAG As Ordered ONE (22:17)
[2022-08-12] MEDS ORDERED: OXYTOCIN 30UNITS IN 0.9% NaCl 500ML IV BAG As Ordered ONE ×2 (22:17→22:55)
[2022-08-12] MEDS ORDERED: ONDANSETRON 4MG 2ML VIAL As Ordered ONE (22:17)
[2022-08-12] MEDS ORDERED: MORPHINE PRES-FREE INJ 10 MG/10 ML VIAL As Ordered ONE (22:17)
[2022-08-12] MEDS ORDERED: SIMETHICONE 80MG CHEW TAB PO PRN (22:20)
[2022-08-12] MEDS ORDERED: RHOGAM 300MCG (1500IU) INJ IM SCH (22:20)
[2022-08-12] MEDS ORDERED: MOM 30ML SUSPENSION UDC PO PRN (22:20)
[2022-08-12] MEDS ORDERED: PERCOCET 5MG/325MG TAB PO PRN ×2 (22:20)
[2022-08-12] MEDS ORDERED: ePHEDrine SULFATE 25 MG/5 ML(5MG/ML) SYRINGE As Ordered ONE (22:24)
[2022-08-12] MEDS ORDERED: NALBUPHINE HCL 10 MG/ML 1ML AMP IV PRN (22:35)
[2022-08-12] MEDS ORDERED: oxyCODONE 5MG TAB PO PRN (22:35)
[2022-08-12] MEDS ORDERED: MEPERIDINE 25 MG/ML 1ML VIAL IV PRN (22:35)
[2022-08-12] MEDS ORDERED: LR 1,000 ML IV SCH (22:35)
[2022-08-12] MEDS ORDERED: **NOTE PATIENT COMMENT** MISC XX SCH (22:35)
[2022-08-12] MEDS ORDERED: METOCLOPRAMIDE INJ 10MG/2ML VIAL IV PRN (22:35)
[2022-08-12] MEDS: SLF 3 ML SYR IV SCH (22:35)
[2022-08-12] MEDS ORDERED: METOCLOPRAMIDE INJ 10MG/2ML VIAL As Ordered ONE (22:45)
[2022-08-12] MEDS ORDERED: METHYLERGONOVINE MALEATE 0.2MG/ML 1ML VIAL ONE (23:41)
[2022-08-13] VITALS (8 sets, daily range): BP systolic 113–137; BP diastolic 58–66
[2022-08-13] MEDS: KETOROLAC 30 MG/ML 1ML VIAL IV SCH ×3 (04:35→16:31)
[2022-08-13] MEDS: LR 1,000 ML IV SCH ×2 (04:37→16:30)
[2022-08-13] MEDS: SLF 3 ML SYR IV SCH ×2 (04:37→16:32)
[2022-08-13 08:19] LABS: HEMATOCRIT 34.8 % (36.0-47.0); MEAN CORPUSCULAR HEMOGLOBIN 25.3 pg (27.0-33.0); MEAN CORPUSCULAR HGB CONC 31.6 g/dl (32.0-36.5); PLATELET COUNT, AUTOMATED 162 10^3/uL (150-450); RED BLOOD COUNT 4.35 10^6/uL (4.00-5.40); WHITE BLOOD COUNT 15.8 10^3/uL (4.0-10.0)
[2022-08-13] MEDS: PRENATAL VITAMINS CHEWABLE TABLET PO SCH (09:54)
[2022-08-13] MEDS: DOCUSATE SODIUM 100MG CAPSULE PO SCH ×2 (09:54→21:43)
[2022-08-14] MEDS: IBUPROFEN 800 MG TAB PO SCH ×2 (00:47→07:25)
[2022-08-14 02:00] VITALS: BP 96/52
[2022-08-14] MEDS ORDERED: MEASLES,MUMPS,RUBELLA VACCINE INJ (MMR-II) SC.IMMUN ONE (09:00)
[2022-08-14] MEDS ORDERED: IBUP80TA PO (09:03)
[2022-08-14] MEDS ORDERED: COLA100C5 PO (09:03)
[2022-08-14] MEDS ORDERED: PERCOCET PO (09:03)
[2022-08-14] MEDS: PRENATAL VITAMINS CHEWABLE TABLET PO SCH (09:29)
[2022-08-14] MEDS: DOCUSATE SODIUM 100MG CAPSULE PO SCH (09:30)
== END 2022-08-14 15:35 | disposition home or self-care (01) | DRG 540 ==
LOC: M LDO 08:37 → M LDI 09:44 → M OBS 08-13 01:10
PROVIDERS: ADMIT Advanced Practice Midwife; ATTEND Advanced Practice Midwife
PROC: 0UB70ZZ Excision of Bilateral Fallopian Tubes, Open Approach (ICD-10-PCS; 2022-08-12)
PROC: 10D00Z1 Extraction of Products of Conception, Low, Open Approach (ICD-10-PCS; principal; 2022-08-12 21:51)
PROC: 10907ZC Drainage of Amniotic Fluid, Therapeutic from Products of Conception, Via Natural or Artificial Opening (ICD-10-PCS; 2022-08-13)
DX: O24.429 Gestational diabetes mellitus in childbirth, unspecified control (principal); O99.354 Diseases of the nervous system complicating childbirth; G35 Multiple sclerosis; Z37.0 Single live birth; Z3A.39 39 weeks gestation of pregnancy; F32.A Depression, unspecified; O99.344 Other mental disorders complicating childbirth; O62.0 Primary inadequate contractions; Z79.899 Other long term (current) drug therapy

== ENCOUNTER → 2022-09-30 | Outpatient (CLI) | payer BC, MEDICAID ==
[~2022-09-30] MED LIST changes: +COLA100C5 PO; +IBUP80TA PO; +OMEP10CASR PO; +PERCOCET PO
[2022-09-30 20:54] LABS: BASO % 0.1 % (0.0-1.0); EOS # 0.1 10^3/uL (0.0-0.5); EOS % 1.3 % (0.0-3.0); HEMATOCRIT 40.2 % (36.0-47.0); HEMOGLOBIN 12.7 g/dl (12.0-15.5); LYMPH # 2.3 10^3/uL (1.5-5.0); LYMPH % 30.2 % (24.0-44.0); MEAN CORPUSCULAR HEMOGLOBIN 25.9 pg (27.0-33.0); MEAN CORPUSCULAR HGB CONC 31.6 g/dl (32.0-36.5); MONO # 0.7 10^3/uL (0.0-0.8); MONO % 9.1 % (2.0-8.0); NEUTROPHILS # 4.5 10^3/uL (1.5-8.5); NEUTROPHILS % 59.2 % (36.0-66.0); PLATELET COUNT, AUTOMATED 258 10^3/uL (150-450); WHITE BLOOD COUNT 7.7 10^3/uL (4.0-10.0)
[2022-09-30 21:18] LABS: ALBUMIN 3.9 G/DL (3.2-5.2); ALKALINE PHOSPHATASE 151 U/L (46-116); ALT/SGPT 22 U/L (7.0-40); AST/SGOT 12 U/L (<34); BILIRUBIN,TOTAL 0.2 MG/DL (0.3-1.2); BLOOD UREA NITROGEN 11 MG/DL (9-23); CALCIUM LEVEL 8.3 MG/DL (8.5-10.1); CARBON DIOXIDE LEVEL 27 MMOL/L (20-31); CHLORIDE LEVEL 106 MMOL/L (98-107); CREATININE FOR GFR 0.77 MG/DL (0.55-1.30); GLOMERULAR FILTRATION RATE > 60.0 (>60); GLUCOSE, FASTING 69 MG/DL (60-100); POTASSIUM SERUM 3.5 MMOL/L (3.5-5.1); SODIUM LEVEL 140 MMOL/L (136-145)
[2022-10-01 00:16] LABS: HEPATITIS C VIRUS ABY INDEX 0.1 INDEX (<0.8)
[2022-10-01 00:18] LABS: HEPATITIS B SURFACE ANTIBODY POSITIVE (POSITIVE)
[2022-10-07 06:52] LABS: DRVV SCREEN 37.5 SEC
== END ==
LOC: M WUC 15:42
PROVIDERS: ATTEND Psychiatry & Neurology Neurology
DX: G35 Multiple sclerosis (principal)

== ENCOUNTER → 2022-09-30 | Outpatient (REF) | payer BC, MEDICAID ==
[2022-09-30 21:05] LABS: APPEARANCE, URINE CLOUDY (CLEAR); BACTERIA, URINE AUTO 2+ (NEGATIVE); BILIRUBIN, URINE AUTO NEGATIVE (NEGATIVE); BLOOD, URINE BLOOD NEGATIVE (NEGATIVE); COLOR, URINE YELLOW (YELLOW); GLUCOSE, URINE (UA) AUTO NEGATIVE (NEGATIVE); KETONE, URINE AUTO NEGATIVE (NEGATIVE); LEUKOCYTE ESTERASE, URINE AUTO 2+ (NEGATIVE); NITRITE, URINE AUTO NEGATIVE (NEGATIVE); PROTEIN, URINE AUTO NEGATIVE (NEGATIVE); RBC, URINE AUTO 3 /HPF (0-3); SPECIFIC GRAVITY URINE AUTO 1.023 (1.002-1.035); SQUAMOUS EPITHELIAL CELL UR AU 10 /HPF (0-6); UROBILINOGEN, URINE AUTO 0.2 mg/dL (0.0-2.0); WBC, URINE AUTO 30 /HPF (0-3)
== END ==
LOC: M LAB REF 20:43
PROVIDERS: ATTEND Physician Assistant Medical
DX: R82.90 Unspecified abnormal findings in urine (principal)

== ENCOUNTER → 2023-04-05 | Outpatient (CLI) | payer BC, MEDICAID | LOC: M EKG 14:24 | PROVIDERS: ATTEND Physician Assistant | DX: R07.9 Chest pain, unspecified (principal) ==

== ENCOUNTER → 2023-05-03 | Outpatient (CLI) | payer BC, MEDICAID | LOC: M RAD 16:51 | PROVIDERS: ATTEND Physician Assistant | DX: R05.9 Cough, unspecified (principal) ==

== ENCOUNTER → 2023-06-30 | Outpatient (CLI) | payer BC, MEDICAID ==
[2023-06-30 17:22] LABS: BASO % 0.1 % (0.0-1.0); EOS # 0.1 10^3/uL (0.0-0.5); EOS % 1.2 % (0.0-3.0); HEMATOCRIT 38.7 % (36.0-47.0); HEMOGLOBIN 12.7 g/dl (12.0-15.5); LYMPH # 2.5 10^3/uL (1.5-5.0); LYMPH % 33.2 % (24.0-44.0); MEAN CORPUSCULAR HEMOGLOBIN 26.1 pg (27.0-33.0); MEAN CORPUSCULAR HGB CONC 32.8 g/dl (32.0-36.5); MEAN CORPUSCULAR VOLUME 79.6 fl (80.0-96.0); MONO # 0.5 10^3/uL (0.0-0.8); MONO % 7.1 % (2.0-8.0); NEUTROPHILS # 4.4 10^3/uL (1.5-8.5); NEUTROPHILS % 58.1 % (36.0-66.0); PLATELET COUNT, AUTOMATED 275 10^3/uL (150-450); RED BLOOD COUNT 4.86 10^6/uL (4.00-5.40); WHITE BLOOD COUNT 7.6 10^3/uL (4.0-10.0)
[2023-06-30 17:42] LABS: ALBUMIN 3.7 G/DL (3.2-5.2); ALKALINE PHOSPHATASE 99 U/L (46-116); ALT/SGPT 14 U/L (7.0-40); AST/SGOT 10 U/L (<34); BILIRUBIN,TOTAL 0.2 MG/DL (0.3-1.2); BLOOD UREA NITROGEN 10 MG/DL (9-23); CALCIUM LEVEL 9.2 MG/DL (8.5-10.1); CARBON DIOXIDE LEVEL 26 MMOL/L (20-31); CHLORIDE LEVEL 106 MMOL/L (98-107); CREATININE FOR GFR 0.57 MG/DL (0.55-1.30); FOLATE > 24.00 NG/ML (>5.4); GLOMERULAR FILTRATION RATE > 60.0 (>60); GLUCOSE, FASTING 80 MG/DL (60-100); POTASSIUM SERUM 3.9 MMOL/L (3.5-5.1); SODIUM LEVEL 136 MMOL/L (136-145); TOTAL PROTEIN 7.4 G/DL (5.7-8.2)
[2023-06-30 17:44] LABS: VITAMIN B12 LEVEL 572 PG/ML (211-911)
[2023-06-30 17:49] LABS: HEPATITIS B SURFACE ANTIBODY POSITIVE (POSITIVE)
[2023-06-30 17:56] LABS: HEMOGLOBIN A1c 5.3 % (4.0-6.0)
[2023-06-30 18:21] LABS: HEPATITIS C VIRUS ABY INDEX 0.07 INDEX (<0.8)
[2023-06-30 21:11] LABS: APPEARANCE, URINE CLEAR (CLEAR); BACTERIA, URINE AUTO NEGATIVE (NEGATIVE); BILIRUBIN, URINE AUTO NEGATIVE (NEGATIVE); BLOOD, URINE BLOOD 1+ (NEGATIVE); COLOR, URINE YELLOW (YELLOW); GLUCOSE, URINE (UA) AUTO NEGATIVE (NEGATIVE); KETONE, URINE AUTO NEGATIVE (NEGATIVE); LEUKOCYTE ESTERASE, URINE AUTO NEGATIVE (NEGATIVE); MUCUS, URINE SMALL (NEGATIVE); NITRITE, URINE AUTO NEGATIVE (NEGATIVE); PROTEIN, URINE AUTO NEGATIVE (NEGATIVE); RBC, URINE AUTO 0 /HPF (0-3); SQUAMOUS EPITHELIAL CELL UR AU 5 /HPF (0-6); UROBILINOGEN, URINE AUTO 0.2 mg/dL (0.0-2.0); WBC, URINE AUTO 2 /HPF (0-3)
== END ==
LOC: M WUC 13:19
PROVIDERS: ATTEND Psychiatry & Neurology Neurology
DX: G35 Multiple sclerosis (principal)

== ENCOUNTER 2024-02-12 21:19 | Emergency (ER) | payer BC, MEDICAID, OTHER ==
[~2024-02-12] VITALS: Ht 152.4 cm; Wt 93.2 kg
[2024-02-12 21:24] VITALS: BP 158/70; TEMP 98.1; O2SAT 96
[2024-02-13] MEDS ORDERED: METH-1164 PO (00:06)
== END 2024-02-13 00:24 | disposition home or self-care (01) ==
LOC: M ED 21:19
DX: R52 Pain, unspecified (principal); V49.40XA Driver injured in collision with unspecified motor vehicles in traffic accident, initial encounter; Y92.410 Unspecified street and highway as the place of occurrence of the external cause; Y93.89 Activity, other specified; Y99.9 Unspecified external cause status; Z79.899 Other long term (current) drug therapy

== ENCOUNTER → 2024-05-10 | Outpatient (CLI) | payer OTHER ==
[~2024-05-10] MED LIST changes: +METH-1164 PO
[2024-05-10 13:41] LABS: APPEARANCE, URINE HAZY (CLEAR); BACTERIA, URINE AUTO NEGATIVE (NEGATIVE); BASO % 0.3 % (0.0-1.0); BILIRUBIN, URINE AUTO NEGATIVE (NEGATIVE); BLOOD, URINE BLOOD NEGATIVE (NEGATIVE); COLOR, URINE YELLOW (YELLOW); EOS # 0.1 10^3/uL (0.0-0.5); EOS % 1.1 % (0.0-3.0); GLUCOSE, URINE (UA) AUTO NEGATIVE (NEGATIVE); HEMATOCRIT 40.9 % (36.0-47.0); HEMOGLOBIN 13.2 g/dl (12.0-15.5); KETONE, URINE AUTO NEGATIVE (NEGATIVE); LEUKOCYTE ESTERASE, URINE AUTO NEGATIVE (NEGATIVE); LYMPH # 1.5 10^3/uL (1.5-5.0); LYMPH % 24.1 % (24.0-44.0); MEAN CORPUSCULAR HEMOGLOBIN 26.5 pg (27.0-33.0); MEAN CORPUSCULAR HGB CONC 32.3 g/dl (32.0-36.5); MONO # 0.5 10^3/uL (0.0-0.8); MONO % 7.4 % (2.0-8.0); MUCUS, URINE SMALL (NEGATIVE); NEUTROPHILS # 4.3 10^3/uL (1.5-8.5); NEUTROPHILS % 66.8 % (36.0-66.0); NITRITE, URINE AUTO NEGATIVE (NEGATIVE); PLATELET COUNT, AUTOMATED 265 10^3/uL (150-450); PROTEIN, URINE AUTO NEGATIVE (NEGATIVE); RBC, URINE AUTO 3 /HPF (0-3); RED BLOOD COUNT 4.99 10^6/uL (4.00-5.40); SPECIFIC GRAVITY URINE AUTO 1.027 (1.002-1.035); SQUAMOUS EPITHELIAL CELL UR AU 14 /HPF (0-6); UROBILINOGEN, URINE AUTO 0.2 mg/dL (0.0-2.0); WBC, URINE AUTO 4 /HPF (0-3); WHITE BLOOD COUNT 6.4 10^3/uL (4.0-10.0)
[2024-05-10 13:45] LABS: ALBUMIN 3.9 G/DL (3.2-5.2); ALKALINE PHOSPHATASE 104 U/L (35-104); ALT/SGPT 17 U/L (7.0-40); AST/SGOT 11 U/L (<34); BILIRUBIN,TOTAL 0.3 MG/DL (0.3-1.2); BLOOD UREA NITROGEN 13 MG/DL (9-23); CALCIUM LEVEL 8.8 MG/DL (8.5-10.1); CARBON DIOXIDE LEVEL 28 MMOL/L (20-31); CHLORIDE LEVEL 109 MMOL/L (98-107); CREATININE FOR GFR 0.62 MG/DL (0.55-1.30); GLOMERULAR FILTRATION RATE > 60.0 (>60); GLUCOSE, FASTING 98 MG/DL (60-100); POTASSIUM SERUM 3.4 MMOL/L (3.5-5.1); SODIUM LEVEL 141 MMOL/L (136-145); TOTAL PROTEIN 7.7 G/DL (5.7-8.2)
[2024-05-10 13:48] LABS: RHEUMATOID FACTOR QUANT 8.9 IU/ML (<14)
[2024-05-10 13:49] LABS: FOLATE > 24.00 NG/ML (>5.4); THYROID STIMULATING HORMONE 1.371 uIU/ML (0.55-4.78)
[2024-05-10 13:50] LABS: VITAMIN B12 LEVEL 518 PG/ML (211-911)
[2024-05-10 14:02] LABS: ERYTHROCYTE SEDIMENTATION RATE 52 mm/hr (0-20)
[2024-05-13 14:16] LABS: HERPES ZOSTER, VARICELLA IgG 9.89 S/CO (>=1.00)
[2024-05-14 04:02] LABS: VITAMIN E(ALPHA TOCOPHEROL) 11.7 mg/L (5.7-19.9); VITAMIN E(GAMMA TOCOPHEROL) < 1.0 mg/L (<=4.3)
[2024-05-14 11:03] LABS: ANA PATTERN Nuclear, Nucleolar (NEGATIVE); ANA SCREEN, IFA POSITIVE (NEGATIVE)
[2024-05-14 15:07] LABS: LYME TOTAL ANTIBODY CIA <= 0.90 Index (<=0.90)
[2024-05-16 17:08] LABS: VITAMIN B1 LEVEL WHOLE BLOOD 113 nmol/L (78-185)
== END ==
LOC: M WUC 09:21
PROVIDERS: ATTEND Psychiatry & Neurology Neurology
DX: G35 Multiple sclerosis (principal); R53.83 Other fatigue

== ENCOUNTER 2025-02-27 08:49 | Outpatient (CLI) | payer OTHER ==
[~2025-02-27] VITALS: Ht 152.4 cm; Wt 95.5 kg
[2025-02-27 08:55] VITALS: BP 125/67; O2SAT 100
[2025-02-27] MEDS: ACETAMINOPHEN 650 MG PO ONE (09:18)
[2025-02-27] MEDS: OCRELIZUMAB 300 MG in NS 250 ML IV ONE (09:55)
[2025-02-27 11:30] VITALS: BP 114/72; O2SAT 100
[2025-02-27 12:00] VITALS: BP 120/81; O2SAT 100
[2025-02-27 12:30] VITALS: BP 122/84; O2SAT 100
[2025-02-27 13:30] VITALS: BP 121/65; O2SAT 98
[2025-02-27 14:58] VITALS: BP 113/60; O2SAT 100
== END 2025-02-27 13:30 ==
LOC: M INFU 08:49
PROVIDERS: ATTEND Psychiatry & Neurology Neurology
DX: G35.D Multiple sclerosis, unspecified (principal)
CPT/HCPCS: 96365; 96366; 96375; J2350; J2919

== ENCOUNTER 2025-03-14 09:07 | Outpatient (CLI) | payer OTHER ==
[~2025-03-14] VITALS: Ht 152.4 cm; Wt 94.5 kg
[2025-03-14] MEDS: ACETAMINOPHEN 650 MG PO ONE (09:14)
[2025-03-14 09:15] VITALS: BP 117/59; O2SAT 95
[2025-03-14] MEDS: OCRELIZUMAB 300 MG in NS 250 ML IV ONE (09:59)
[2025-03-14 11:00] VITALS: BP 115/56; O2SAT 96
[2025-03-14 11:44] VITALS: BP 111/56; O2SAT 95
[2025-03-14 12:00] VITALS: BP 113/58; O2SAT 95
[2025-03-14 12:57] VITALS: BP 120/56; O2SAT 95
== END 2025-03-14 13:00 | disposition home or self-care (01) ==
LOC: M INFU 09:07
PROVIDERS: ATTEND Psychiatry & Neurology Neurology
DX: G35.D Multiple sclerosis, unspecified (principal)
CPT/HCPCS: 96365; 96366; 96375; J2350; J2919